=== PATIENT | female | born 1970 | race Caucasian/White ===

== ENCOUNTER 2016-10-12 18:51 | Emergency (ER) | payer BC ==
[~2016-10-12] VITALS: Ht 147.3 cm; Wt 53.6 kg
[2016-10-12] MEDS ORDERED: ONDANSETRON 2MG/ML, 2ML IVPush ONE (19:30)
[2016-10-12] MEDS ORDERED: KETOROLAC 30 MG/1 ML IVPush ONE (19:30)
[2016-10-12] MEDS ORDERED: SODIUM CHLORIDE FLUSH 10ML SYR IVF ONE (19:30)
[2016-10-12] MEDS ORDERED: SODIUM CHLORIDE 0.9% 1,000ML IVBOLUS ONE (19:30)
[2016-10-12] MEDS ORDERED: ONDANSETRON 2MG/ML, 2ML ONE (19:34)
[2016-10-12] MEDS ORDERED: KETOROLAC 30 MG/1 ML ONE (19:34)
[2016-10-12 20:04] LABS: ASPARTATE AMINO TRANSFERASE 19 U/L (15-37); BLOOD UREA NITROGEN 15 mg/dL (7-18)
== END 2016-10-12 21:43 | disposition home or self-care (01) ==
LOC: ED 21:02 → MERGE 21:02 → ED 21:43
DX: A41.9 Sepsis, unspecified organism (principal); N30.01 Acute cystitis with hematuria; R19.7 Diarrhea, unspecified
CPT/HCPCS: 36415; 74176; 80053; 81001; 83690; 85025; 85610; 85730; 87086; 96361; 96374; 96375; 99285; J1885; J2405; J7030